=== PATIENT | male | born 1950 | race Caucasian/White ===

== ENCOUNTER 2018-09-09 14:38 | Outpatient (CLI) | payer MEDICARE, BC ==
--- NOTE | 2018-09-09 16:06 | BD ---
BONE DENSITOMETRY USING DEXA: Date: 09/09/18 HISTORY: Postmenopausal screening for osteoporosis. FINDINGS: Right Hip: Femoral Neck: 0.761 T-Score: -1.2 Z-Score: -0.1 Total Femur: 0.929 T-Score: -0.7 Z-Score: -0.1 Left Hip: Femoral Neck: 0.744 T-Score: -1.4 Z-Score: -0.2 Total Femur: 0.934 T-Score: -0.7 Z-Score: -0.0 The 10 year fracture risk for a major osteoporotic fracture is 5.7% and for a hip fracture is 0.9%. IMPRESSION: Osteopenia. POS: [facility]
== END 2018-09-09 14:39 | disposition home or self-care (01) ==
LOC: BICMAMMO 14:38
PROVIDERS: ATTEND Internal Medicine Gastroenterology
DX: M85.851 Other specified disorders of bone density and structure, right thigh (principal); M85.852 Other specified disorders of bone density and structure, left thigh; K21.9 Gastro-esophageal reflux disease without esophagitis; K22.70 Barrett's esophagus without dysplasia
CPT/HCPCS: 77080

== ENCOUNTER 2019-02-18 10:23 | Day surgery (SDC) | payer MEDICARE, BC ==
[2019-02-17 15:54] VITALS: BMI 29.8
[2019-02-18] MEDS ORDERED: Hydrocortisone Sod Succ/PF 100 mg/2 ml Vial ONE (10:51)
[2019-02-18 11:05] LABS: Hemoglobin 13.1 g/dL (14.0-18.0); Mean Corpuscular Hemoglobin 30.7 pg (27.0-31.0); Mean Corpuscular Volume 93.1 fL (78.0-98.0); Mean Platelet Volume 6.6 fL (7.4-10.4); Platelet Count 349 thou/uL (130-400); RBC Distribution Width 12.5 % (11.5-14.5); Red Blood Cell (RBC) Count 4.26 mill/uL (4.70-6.10); White Blood Cell (WBC) Count 8.7 thou/uL (4.8-10.8)
[2019-02-18 11:08] LABS: INR-International Normal Ratio 1.1; PTT 29.4 SEC (22.9-36.1); Prothrombin Time 14.4 SEC (12.0-14.7)
[2019-02-18 11:12] LABS: Platelet Count 374 thou/uL (130-400)
[2019-02-18 11:22] LABS: Anion Gap 16 mmol/L (10-20); BUN (Urea Nitrogen) 17 mg/dL (8.4-25.7); Calc. Creatinine Clearance 79 mL/min (70-130); Calcium 9.8 mg/dL (7.8-10.44); Carbon Dioxide 27 mmol/L (23-31); Chloride 98 mmol/L (98-107); Estimated GFR-MDRD 58; Glucose 99 mg/dL (80-115); Potassium 3.5 mmol/L (3.5-5.1); Sodium 137 mmol/L (136-145)
[2019-02-18 11:25] LABS: EPI 76 SEC (67-199)
--- NOTE | 2019-02-18 11:44 | RAD ---
EXAM: XR Abdomen 1 View/KUB PROVIDED CLINICAL HISTORY: Left ureteral stone COMPARISON: None available FINDINGS: The abdominal bowel gas pattern is nonspecific. Radiodensity overlying the inferior pole right renal shadow may reflect renal calculus. Probable phleboliths overlying the pelvis. Postoperative change involving lower lumbar spine. IMPRESSION: Possible right renal calculus.
[2019-02-18] MEDS ORDERED: Fentanyl 100 MCG/2 ML VIAL ONE (12:06)
[2019-02-18] MEDS ORDERED: Iothalamate Meglumine 60% 50 ML VIAL FS ONE (13:08)
[2019-02-18] MEDS ORDERED: Phenylephrine HCL 10 MG/ML VIAL ONE (13:31)
[2019-02-18] MEDS ORDERED: Phenylephrine 0.25% Nasal Spray 15 ML BOT ONE (13:32)
[2019-02-18] MEDS ORDERED: Phenylephrine 1% Nasal Spray 15 ML BOT ONE (13:32)
--- NOTE | 2019-02-18 21:49 | OP ---
DATE OF PROCEDURE: 02/18/2019 PREOPERATIVE DIAGNOSIS: Left ureteral stone. POSTOPERATIVE DIAGNOSIS: Left ureteral stone. PROCEDURE PERFORMED: Left extracorporeal shock wave lithotripsy, cysto, left stent. ANESTHESIA: General. ESTIMATED BLOOD LOSS: Not recorded. FINDINGS: He has a 6-mm stone that is now in the lower 3rd of his left ureter. It was treated with a total of 3000 shocks. It looked like it fragmented well, but we did a retrograde study and there was still contrast hanging up at that point, so a stent was placed, a string was left on the stent. DESCRIPTION OF PROCEDURE: Obtained written and verbal consent from the patient. After receiving some IV Solu-Cortef because of an iodine allergy and some IV Ancef and after documenting normal preoperative blood work and making sure we could see the stone on his preoperative KUB, he was taken back to the operating suite. He was placed in a supine position on the treatment table. PlexiPulses were placed on his lower extremities and turned on. He was given a general anesthetic and oral obturator intubation. The stone was visualized with the fluoroscopic unit. He was coupled to the unit and stone was placed in the treatment focal point. Shockwave therapy was commenced and started at a low kV and worked up to level 4. The stone did appear to change its configuration. After 1000 shocks, the kV was increased to 5. After 1500 shocks, it looked like it had fragmented very well and for this reason, the shocks were held. He was placed in the dorsal lithotomy position, sterilely prepped and draped and cystoscopy was performed with a 22-Samoan sheath. This was well lubricated and passed under direct vision through the male urethra and into the urinary bladder with aid of a 30-degree lens and video camera and monitor. We then brought in a 5-Samoan Pollack catheter and placed it a couple of cm up the left ureter and then injected some contrast in a retrograde manner that showed filling defects still at the area that we were treating and dilated the ureter above it. We watched and the contrast still accumulated above at this point suggesting that there either was some edema or possibly that had not fragmented well. For this reason, a guidewire was advanced up past this point up into the upper collecting system and then a 4.8 x 26 cm double-J stent was passed over the guidewire and pushed up into place with aid of a pusher, so its proximal end coiled in the upper collecting system and the lower coil coiled in the bladder. The bladder was drained. The instruments were removed. The string was left attached to this. He was then repositioned and we again treated this area where the stone fragments were until a total of 3000 shocks were given. This was all at level 5. The contrast seemed to drain well after another 1000 shocks hopefully suggesting this had fragmented well. At this point, the procedure was terminated. He was awakened and extubated and taken by bradley to the recovery room. Job ID: [id number]
== END 2019-02-18 16:32 | disposition home or self-care (01) ==
LOC: SDC 10:23
PROVIDERS: ATTEND Urology
PROC: 0TF7XZZ Fragmentation in Left Ureter, External Approach (ICD-10-PCS; principal; 2019-02-18)
PROC: 0T778DZ Dilation of Left Ureter with Intraluminal Device, Via Natural or Artificial Opening Endoscopic (ICD-10-PCS; 2019-02-18)
DX: N20.1 Calculus of ureter (principal); I10 Essential (primary) hypertension; K21.9 Gastro-esophageal reflux disease without esophagitis; Z79.82 Long term (current) use of aspirin; Z79.899 Other long term (current) drug therapy; Z91.041 Radiographic dye allergy status
CPT/HCPCS: 50590; 52332; 74018; 80048; 85027; 85576; 85610; 85730; C1758; 36415; J0690; J1720; J2370; J3010

== ENCOUNTER 2022-06-05 09:07 | Outpatient (CLI) | payer MEDICARE, BC | END 2022-06-05 09:08 | disposition home or self-care (01) | LOC: BICMAMMO 09:07 | PROVIDERS: ATTEND Family Medicine | DX: M85.851 Other specified disorders of bone density and structure, right thigh (principal); M85.852 Other specified disorders of bone density and structure, left thigh | CPT/HCPCS: 77080 ==

== ENCOUNTER 2023-07-21 17:00 | Outpatient (CLI) | payer MEDICARE, BC | END 2023-07-21 17:01 | disposition home or self-care (01) | LOC: SLEEPLAB 17:00 | PROVIDERS: ATTEND Family Medicine | DX: G47.33 Obstructive sleep apnea (adult) (pediatric) (principal); K21.9 Gastro-esophageal reflux disease without esophagitis; I10 Essential (primary) hypertension; R53.83 Other fatigue; R51.9 Headache, unspecified; R06.83 Snoring; R35.1 Nocturia; E66.9 Obesity, unspecified; Z68.30 Body mass index [BMI] 30.0-30.9, adult | CPT/HCPCS: 95800 ==

== ENCOUNTER 2023-09-24 14:04 | Outpatient (CLI) | payer MEDICARE, BC | END 2023-09-24 14:05 | disposition home or self-care (01) | LOC: BICRAD 14:04 | PROVIDERS: ATTEND Family Medicine | DX: M25.512 Pain in left shoulder (principal) ==